=== PATIENT | female | born 1995 | race Caucasian/White ===

== ENCOUNTER 2019-01-13 08:06 | Emergency (ER) | payer OTHER ==
[2019-01-13] MEDS ORDERED: DIAZEPAM 5 MG TAB PO ONE (08:19)
[2019-01-13] MEDS ORDERED: IBUPROFEN 600 MG TAB PO ONE (08:19)
--- NOTE | 2019-01-13 08:23 | EDPHY ---
H & P Time Seen by Provider: 01/13/19 08:14 HPI/ROS: CHIEF COMPLAINT: Neck pain HISTORY OF PRESENT ILLNESS: Patient is a 23-year-old female presents emergency department ongoing neck pain. Patient was snowboarding yesterday. She states she fell multiple times having "whiplash."A friend tried to massage her neck out last evening with "deep massage."She woke this morning with severe neck pain. It is bilateral is central. Worse with movement. She describes it as severe. She has no hand numbness or weakness. She is able to ambulate without difficulty. No visual change. No nausea vomiting. No fevers or chills. REVIEW OF SYSTEMS: 10 systems were reveiwed and are negative with the exception of the elements mentioned in the history of present illness. Past Medical/Surgical History: Negative Past surgical history: Noncontributory Social history: Patient denies drugs Smoking Status: Never smoked Physical Exam: Vitals noted GENERAL: Tearful, mild acute distress, alert. HEENT: Eyes normal to inspection, normal pharynx, no signs of dehydration. NECK: Normal appearing. Patient has mild tense muscles bilaterally. No significant midline tenderness to palpation. No step-off. RESPIRATORY: Clear to auscultation bilaterally, no rales, rhonchi or wheezing. CVS: Regular rate and rhythm, no rubs, murmurs, or gallops. ABDOMEN: Normal. BACK: Normal to inspection, no CVA tenderness. No spinal tenderness SKIN: Normal color, no rash, warm, dry. No pallor. EXTREMITIES: Normal appearing. NEURO/PSYCH: Alert and oriented, normal mood and affect, normal motor sensory exam. No obvious cranial nerve deficit. Constitutional: Initial Vital Signs Temperature (C) 36.6 C 01/13/19 08:08 Heart Rate 73 01/13/19 08:08 Respiratory Rate 16 01/13/19 08:08 Blood Pressure 118/68 01/13/19 08:08 O2 Sat (%) 98 01/13/19 08:08 O2 Delivery Mode Room Air Allergies/Adverse Reactions: No Known Allergies Allergy (Unverified 01/13/19 08:08) Home Medications: Medication Instructions Recorded Diazepam [Valium] 5 mg PO Q6 #11 tab 01/13/19 oxyCODONE/APAP 5/325 [Percocet 1 - 2 tab PO Q4PRN PRN #11 tab 01/13/19 5/325 (*)] Medical Decision Making - Diagnostics Imaging Results: Imaging Impressions Cervical Spine CT 01/13/19 08:20 Impression: Negative noncontrast CT of the cervical spine. Results called to Dr. Sindhu Denise at 8:45 AM.. ED Course/Re-evaluation: In the emergency department I discussed possible etiologies with the patient. I answered all her questions. A CT of the cervical spine was ordered due to her reported trauma. The patient was given Valium 5 mg orally and Motrin 600 mg orally. I rechecked the patient. She was doing better. She still had neck pain. She is given Percocet orally. CT C-spine: Please refer the dictated report by Dr. Christopher. No acute disease noted. I discussed the results with the patient. I answered all her questions. On recheck she had no focal deficits. She was given warnings prior to leaving. She will return with worsening symptoms. Differential Diagnosis: My differential includes but is not limited to cervical strain, cervical sprain , disc herniation, fracture, dislocation, dissection - Data Points Medications Given: Discontinued Medications Diazepam (Valium) 5 mg PO EDNOW ONE Stop: 01/13/19 08:20 Last Admin: 01/13/19 08:26 Dose: 5 mg Ibuprofen (Motrin) 600 mg PO EDNOW ONE Stop: 01/13/19 08:20 Last Admin: 01/13/19 08:26 Dose: 600 mg Oxycodone/Acetaminophen (Percocet 5/325) 1 tab PO EDNOW ONE Stop: 01/13/19 09:01 Last Admin: 01/13/19 09:02 Dose: 1 tab Departure - Departure Disposition: Home, Routine, Self-Care Clinical Impression: Cervical strain, acute Qualifiers: Encounter type: initial encounter Qualified Code(s): S16.1XXA - Strain of muscle, fascia and tendon at neck level, initial encounter Condition: Good Instructions: Cervical Strain (ED) Additional Instructions: Return with increasing pain, weakness, numbness or any other concerns. Take ibuprofen 3 times daily for the next 3 days. You been given pain medicine for breakthrough pain. You have also been given Valium which helped with muscle spasm. You been given follow-up with Neurosurgery. They handle neck pain if it continues. Call to make an appointment. Referrals: Jasbir Berry MD [Medical Doctor] - 5-7 days, call for appt. Prescriptions: Diazepam [Valium] 5 mg PO Q6 #11 tab oxyCODONE/APAP 5/325 [Percocet 5/325 (*)] 1 - 2 tab PO Q4PRN PRN #11 tab PRN Reason: For Moderate To Severe Pain
[2019-01-13] MEDS ORDERED: OXYCODONE/APAP 5/325 TAB ONE (08:58)
[2019-01-13] MEDS ORDERED: OXYCODONE/APAP 5/325 TAB PO ONE (09:00)
[2019-01-13 09:57] VITALS: BP 103/64
== END 2019-01-13 09:45 | disposition home or self-care (01) ==
DX: S16.1XXA Strain of muscle, fascia and tendon at neck level, initial encounter (principal); V00.311A Fall from snowboard, initial encounter; Y92.828 Other wilderness area as the place of occurrence of the external cause